=== PATIENT | female | born 1955 | race Caucasian/White ===

== ENCOUNTER → 2016-12-01 | Outpatient (CLI) | payer OTHER | LOC: FIMAGING 11:04 | DX: Z12.31 Encounter for screening mammogram for malignant neoplasm of breast (principal); Z80.3 Family history of malignant neoplasm of breast | CPT/HCPCS: G0202 ==

== ENCOUNTER → 2017-09-30 | Outpatient (CLI) | payer OTHER | LOC: FIMAGING 12:42 | PROVIDERS: ATTEND Family Medicine | DX: R10.32 Left lower quadrant pain (principal); N83.202 Unspecified ovarian cyst, left side; K59.09 Other constipation; N83.291 Other ovarian cyst, right side ==

== ENCOUNTER → 2017-12-24 | Outpatient (CLI) | payer OTHER | LOC: FIMAGING 15:08 | PROVIDERS: ATTEND Family Medicine | DX: Z12.31 Encounter for screening mammogram for malignant neoplasm of breast (principal); Z80.3 Family history of malignant neoplasm of breast ==

== ENCOUNTER 2018-06-10 07:55 | Inpatient (IN) | payer OTHER ==
[~2018-06-10 07:55] MED LIST: CETIRIZINE 10 MG TAB PO SCH
[2018-06-10] MEDS ORDERED: CITRATE DEXTROSE SOLN 500 ML BAG ONE (08:26)
[2018-06-10] MEDS ORDERED: CHLORHEXIDINE GLUC HIBICLENS 118 ML BTL TP ONE (08:26)
[2018-06-10] MEDS ORDERED: THROMBIN (BOVINE) 20,000 UNIT VIAL TP ONE (08:26)
[2018-06-10] MEDS ORDERED: BUPIVACAINE 0.25% 30 ML SDV ONE (08:26)
[2018-06-10] MEDS ORDERED: EPINEPHrine 1 MG/ML INJ ONE (08:27)
[2018-06-10] MEDS ORDERED: ceFAZolin 2 GM/DEXTROSE 100 ML IV ONE (08:27)
[2018-06-10] MEDS ORDERED: BACITRACIN 50,000 UNITS/10 ML SYR IRR ONE (08:27)
[2018-06-10] MEDS ORDERED: morphINE SR 15 MG TAB PO ONE (08:27)
[2018-06-10] MEDS ORDERED: ACETAMINOPHEN 500 MG TAB PO ONE (08:27)
[2018-06-10] MEDS ORDERED: morphINE PF 0.2 MG in SYRINGE INTRATHECAL 1 SYR IT ONE (08:27)
[2018-06-10] MEDS ORDERED: GABAPENTIN 300 MG CAP PO ONE (08:27)
--- NOTE | 2018-06-10 08:48 | PDHPUP ---
History & Physical Update H&P update statement: This history and physical update is based on an assessment of the patient which was completed after admission or registration (within 24 hours), but prior to the surgery/procedure. H&P update: H&P reviewed & patient examined, no change in patient's condition since H&P completed (Consents signed and site marked. All questions answered.)
[2018-06-10] MEDS ORDERED: LIDOCAINE 1% 2 ML INJ ID PRN (08:50)
[2018-06-10] MEDS ORDERED: LR 1,000 ML IV ONE (08:50)
[2018-06-10] MEDS ORDERED: oxyCODONE IR 5 MG TAB PO PRN (09:34)
[2018-06-10] MEDS ORDERED: NALOXONE HCL 0.4 MG/ML INJ IVP PRN (09:34)
[2018-06-10] MEDS ORDERED: ONDANSETRON 4 MG/2 ML VIAL IVP PRN ×2 (09:34→13:11)
[2018-06-10] MEDS ORDERED: DEXAMETHASONE 4 MG/ML VIAL IVP PRN (09:34)
[2018-06-10] MEDS ORDERED: ALBUTEROL 3 ML DEYVIAL IH PRN (09:34)
[2018-06-10] MEDS ORDERED: PROPOFOL/EMULSION 500 MG/50 ML BOTTLE IV ONE ×3 (09:40)
[2018-06-10] MEDS ORDERED: REMIFENTANIL HCL 1 MG VIAL ONE (09:42)
[2018-06-10] MEDS ORDERED: fentaNYL 100 MCG/2 ML INJ ONE ×3 (09:42→14:13)
[2018-06-10] MEDS ORDERED: SUCCINYLCHOLINE CHLORIDE 200 MG/10 ML SYR IVP ONE (10:20)
[2018-06-10] MEDS ORDERED: ROCURONIUM 50 MG/5 ML VIAL ONE (10:21)
[2018-06-10] MEDS ORDERED: DEXAMETHASONE 4 MG/ML VIAL ONE (10:21)
[2018-06-10] MEDS ORDERED: ONDANSETRON 4 MG/2 ML VIAL ONE (10:21)
--- NOTE | 2018-06-10 10:22 | PDANEPAE ---
ANE History of Present Illness L4-5 TLIF ANE Past Medical History - Cardiovascular History Hx Hypertension: Yes Hx Arrhythmias: Yes Hx Chest Pain: Yes Hx Coronary Artery / Peripheral Vascular Disease: No Hx CHF / Valvular Disease: Yes Hx Palpitations: No Cardiovascular History Comment: Angiogram 2009. tachy arrythmia. "Leaky Valve " - Pulmonary History Hx COPD: No Hx Asthma/Reactive Airway Disease: Yes Hx Recent Upper Respiratory Infection: No Hx Oxygen in Use at Home: Yes O2 in Use at Home (L/minute): 2L @ night with CPAP Hx Sleep Apnea: Yes Sleep Apnea Screening Result - Last Documented: Positive Pulmonary History Comment: Asthma. hx bronchitis and pneumonia - Neurologic History Hx Cerebrovascular Accident: No Hx Seizures: No Hx Dementia: Yes Neurologic History Comment: Migraines - Endocrine History Hx Diabetes: Yes Endocrine History Comment: hypothyroid - Renal History Hx Renal Disorders: No - Liver History Hx Hepatic Disorders: Yes Hepatic History Comment: hemangioma in liver - Neurological & Psychiatric Hx Hx Neurological and Psychiatric Disorders: Yes Neurological / Psychiatric History Comment: depression - Cancer History Hx Cancer: Yes - Congenital Disorder History Hx Congenital Disorders: No - GI History Hx Gastrointestinal Disorders: Yes Gastrointestinal History Comment: Hx ulcer, IBS, Diverticulitis - Other Health History Other Health History: arthritis,fibromyalgia - Surgical History Prior Surgeries: B cataract, hernia. foot sx, hand sx ANE Review of Systems Review of Systems: - Exercise capacity METS (RN): 4 METS ANE Patient History - Allergies Allergies/Adverse Reactions: hydrocodone bitartrate [From Vicodin] Allergy (Intermediate, Verified 06/10/18 09:02) Vomiting aspirin Allergy (Verified 06/10/18 09:02) Nose Bleed erythromycin base [Erythromycin Base] Allergy (Verified 06/10/18 09:02) Hives latex [Latex] Allergy (Verified 06/10/18 09:02) Hives naproxen sodium [From Aleve] Allergy (Verified 06/10/18 09:02) Nose Bleed niacin [From Niaspan] Allergy (Verified 06/10/18 09:02) Hives nickel Allergy (Verified 06/10/18 09:02) Penicillins Allergy (Verified 06/10/18 09:02) Hives sertraline HCl [From Zoloft] Allergy (Verified 06/10/18 09:02) Hives suture Allergy (Verified 06/10/18 09:02) Swelling - Home Medications Home Medications: Albuterol [Proventil Inhaler HFA (*)] 1 - 2 puffs IH DAILY PRN 06/17/10 [Last Taken Unknown] Azelastine HCl 1 spray NS BID 06/17/10 [Last Taken 06/10/18 05:30] Cetirizine [ZyrTEC 10 mg (*)] 10 mg PO DAILY06 06/17/10 [Last Taken 06/03/18 05: 30] Diltiazem HCl [Diltiazem ER] 240 mg PO DAILY06 06/17/10 [Last Taken 06/10/18 05: 30] Levothyroxine [Synthroid 88 mcg (*)] 88 mcg PO DAILY06 06/17/10 [Last Taken 05:30] Montelukast Sodium [Singulair 10 mg (*)] 10 mg PO DAILY@06/17/10 [Last Taken 06/09/18 17:00] Nitroglycerin [Nitrostat 0.4 mg (*)] 0.4 mg SL Q5M PRN 06/17/10 [Last Taken 11/29] [place]-3 Fatty Acids [Fish Oil 1000 mg (*)] 1,000 mg PO DAILY 06/17/10 [Last Taken 06/03/18] Rizatriptan Benzoate [Maxalt Extension Work Director] 10 mg PO DAILY PRN 06/17/10 [Last Taken ] Spironolactone [Aldactone 25 MG (*)] 100 mg PO DAILY 06/17/10 [Last Taken ] C/E/Zn/Cu/OM3/DHA/EPA/LUT/ZEAX [Preservision Areds 2 Softgel] 1 each PO BID@05/31/18 [Last Taken 06/07/18] Cholecalciferol Vit D3 [Vitamin D3 2000 units tab (OTC)] 2,000 units PO DAILY@ 05/31/18 [Last Taken 06/09/18 17:00] Fenofibrate [Tricor 145 mg (*)] 145 mg PO DAILY@05/31/18 [Last Taken 17:00] Furosemide [Lasix 20 MG (*)] 20 mg PO DAILY@05/31/18 [Last Taken 06/09/18 17: 00] Scopolamine [Transderm-Scop] 1 each TD DAILY PRN 05/31/18 [Last Taken 03/24/18] - NPO status NPO Since - Liquids (Date): 06/10/18 NPO Since - Liquids (Time): 05:30 NPO Since - Solids (Date): 06/09/18 NPO Since - Solids (Time): 19:30 - Smoking Hx Smoking Status: Never smoked ANE Labs/Vital Signs - Vital Signs Blood Pressure: 157/79 Heart Rate: 87 Respiratory Rate: 16 O2 Sat (%): 95 Height: 165.1 cm Weight: 83.915 kg ANE Physical Exam - Airway Neck exam: FROM Mallampati Score: Class 2 Mouth exam: normal dental/mouth exam - Pulmonary Pulmonary: clear to auscultation - Cardiovascular Cardiovascular: regular rate and rhythym - ASA Status ASA Status: III ANE Anesthesia Plan Anesthesia Plan: general endotracheal anesthesia Total IV Anesthesia: Yes
[2018-06-10] MEDS ORDERED: ePHEDrine SULFATE 25 MG/5 ML SYR ONE (11:04)
[2018-06-10] MEDS ORDERED: HYDROmorphONE/DILAUDID 1 MG/ML INJ ONE (13:08)
[2018-06-10] MEDS ORDERED: SCOPOLAMINE TD PRN (13:10)
[2018-06-10] MEDS ORDERED: ALBUTEROL 60 PUFFS/8 GM MDI IH PRN (13:10)
[2018-06-10] MEDS: fentaNYL 100 MCG/2 ML INJ IVP PRN ×4 (13:10→14:16)
[2018-06-10] MEDS: HYDROmorphONE/DILAUDID 1 MG/ML INJ IVP PRN ×3 (13:11→13:40)
[2018-06-10] MEDS ORDERED: MAGNESIUM HYDROXIDE 30 ML UDCUP PO PRN (13:11)
[2018-06-10] MEDS ORDERED: BISACODYL 10 MG SUPP PR PRN (13:11)
[2018-06-10] MEDS ORDERED: LACTULOSE 20 GM/30 ML UDCUP PO PRN (13:11)
[2018-06-10] MEDS ORDERED: ONDANSETRON DISINTEGRATING 4 MG TAB PO PRN (13:11)
--- NOTE | 2018-06-10 13:22 | POSTOPPROG ---
Post Op Note Date of Operation: 06/10/18 Surgeon: Justin Walker Mathematics Improvement Teacher: JUSTINE Bonner Anesthesia: GET(General Endotracheal) Pre-op Diagnosis: lumbar stenosis Post-op Diagnosis: lumbar stenosis Indication: lumbar stenosis Procedure: L4/5 TLIF and PSF Inf/Abcess present in the surg proc area at time of surgery?: No EBL: 50-100 Drains: Valdez LE Addendum - Addendum .: S: low back pain O: NAD A&OX3 MAEX4 5/ = BUE and BLE A/P 63F s/p L4/5 TLIF and PSF -Opmtize pain management -Advance diet as tolerated -PT/OT -JPX1 -To SDU for observation given central sleep apnea and duramorph give for pain management -Post op xrays pending -DVT prophx: TEDs, SCDs, Lovenox okay POD1 -Please notify NS with any change in neuro/motor exam -Discussed with Dr. Walker
[2018-06-10] MEDS ORDERED: NITROGLYCERIN 0.4 MG BTL SL PRN (13:34)
[2018-06-10] MEDS ORDERED: METHOCARBAMOL 1,000 MG in NS 50 ML IV ONE (13:45)
[2018-06-10] MEDS ORDERED: ceFAZolin 2 GM/DEXTROSE 100 ML IV SCH (14:00)
--- NOTE | 2018-06-10 14:00 | GOP ---
[f rep st] OPERATIVE REPORT DATE OF OPERATION: 06/10/2018 SURGEON: Justin Walker MD SLASHER HAND: Winsome Bonner. ANESTHESIA: General. PREOPERATIVE DIAGNOSIS: 1. L4-L5 grade 1 spondylolisthesis with severe spinal stenosis. 2. Bilateral lower extremity radiculopathy with weakness. 3. Treatment refractory to nonoperative intervention. POSTOPERATIVE DIAGNOSIS: 1. L4-L5 grade 1 spondylolisthesis with severe spinal stenosis. 2. Bilateral lower extremity radiculopathy with weakness. 3. Treatment refractory to nonoperative intervention. PROCEDURE PERFORMED: 1. Posterior arthrodesis with approach to L4 and L5. 2. Posterolateral fusion with bilateral pedicle screw placement at L4 and L5 from the [employer] 5.5 system. 3. Decompressive laminectomy with bilateral medial facetectomies and foraminotomies. 4. Left-sided transforaminal lumbar interbody fusion with a 7 x 23 mm titanium PEEK Elevate cage filled with morselized autograft and allograft. 5. Posterolateral fusion on the right between L4-5 with morselized autograft and allograft. 6. Use of intraoperative 3D Stealth navigation. 7. Use of intraoperative fluoroscopy, less than 1 hour physician time. 8. Use of neuromonitoring. 9. Use of the operating microscope. 10. Injection of preservative-free intrathecal narcotics. FINDINGS: per imaging SPECIMENS: None. ESTIMATED BLOOD LOSS: 100 mL. INDICATIONS: The patient is a 63-year-old woman who has unfortunately has been suffering from a long standing history of low back pain with lower extremity radiculopathy with some weakness. She had evidence of a grade 1 spondylolisthesis L4-5 with severe lateral recess and central stenosis. After discussion of the risks, benefits, and treatment alternatives and after failing nonoperative intervention, we decided to proceed forth with surgery as described above. DESCRIPTION OF PROCEDURE: Patient was brought to the operating theater and underwent general endotracheal anesthesia without complications. She had Venodynes, HORACIO hose, and the appropriate lines placed by Anesthesia. She was flipped prone onto the Valdez table, and all bony processes inspected and padded. The lower lumbar region was prepped and draped in the usual sterile surgical fashion. A time-out was completed per protocol, and the patient received antibiotics within 1 hour of incision. Using lateral fluoroscopy and a spinal needle, we picked our entry point to the L4-5 level. This was marked in the midline, and the incision infiltrated with Marcaine with epinephrine. The incision was taken down with the scalpel blade and using monopolar, taken down the midline through the lumbodorsal fascia. A subperiosteal dissection was carried out to the transverse processes of L4 and L5 bilaterally with care to preserve the bilateral L3-4 facet joint. Deep retractors were placed to maintain our exposure. We confirmed our level using lateral fluoroscopy. We attached the 3D Stealth navigation clamp to the spinous process of L4 and we completed a 3D Stealth navigation spin. Using 3D navigation, we placed the civil engineering professional holes for the bilateral pedicle screws at L4 and L5. All holes were manually palpated with no evidence of any cortical breaches. We then tapped and placed 6.5 x 40 mm screw on the left at L4, 6.5 x 45 mm screw on the right L4 and left side L5, and a 6.5 x 50 mm screw on the right L5, all from the [employer] 5.5 system. Another 3D Stealth navigation spin demonstrated good placement of the hardware. At this point, the microscope was brought into the field to assist with microscopic dissection and to maintain illumination and magnification. Using a combination of the bur tip on the drill bit and Kerrison punches and a Leksell rongeur, we completed a decompressive laminectomy with bilateral mesial facetectomies, L4-L5. We completed foraminotomy on the right side at L4-5 until the nerve felt well decompressed. We then completed an aggressive facetectomy on the left side L4-5 and distracted the interspace. We completed left-sided L4-5 diskectomy and prepared the cartilaginous endplates. We measured the interbody space and placed a 7 x 23 mm titanium PEEK Elevate cage filled with morselized autograft and allograft anteriorly and toward the midline. We packed additional morcellized autograft in the disk space interbody fusion. We let down the distraction and decorticated the bone on the right side between L4 and L5. The wound was irrigated copiously with bacitracin irrigation. We injected preservative-free intrathecal narcotics. We placed 2 lordotic rods and then the heads and screws between L4 and L5 and secured them down with cap screws which were then tightened per the engine head repairer's setting. We placed morselized autograft and allograft on the right side between L4-5 for the posterolateral fusion. A drain was left in the subfascial space. We then closed the wound in multiple layers including PDS sutures for the deep layers and Dermabond for the skin. Patient's wounds were dressed sterilely. She was then flipped supine onto the transport cart where she was awakened, extubated, and taken to the recovery room in stable condition. Note that there were no complications and no noted changes on neuromonitoring throughout the procedure. COMPLICATIONS: None. /[id number]/MODL MTDD
--- NOTE | 2018-06-10 14:08 | PDMN ---
Medical Necessity Medical necessity: Pt meets inpt criteria per MD order and [facility], Lumbar Fusion, inpt only surgery, 3 days, CPT 45686. Est LOS>2MN for surgical intervention for lumbar stenosis, s/p L4-5 TLIF and PSF, requiring inpt post-op care.
[2018-06-10] MEDS: NS 1,000 ML IV SCH (15:20)
[2018-06-10] MEDS: ceFAZolin 2 GM in D5W 100 ML IV SCH (15:34)
[2018-06-10] MEDS: diphenhydrAMINE 25 MG CAP PO PRN (15:34)
[2018-06-10] MEDS: ACETAMINOPHEN 500 MG TAB PO SCH ×2 (16:26→20:31)
[2018-06-10] MEDS: FUROSEMIDE 20 MG TAB PO SCH ×2 (16:26→20:33)
[2018-06-10] MEDS ORDERED: PROMETHAZINE HCL 25 MG/ML INJ IVP PRN (18:03)
--- NOTE | 2018-06-10 18:31 | POSTANESTH ---
Post Anesthetic Evaluation Cardiovascular Status: Normal, Stable Respiratory Status: Normal, Stable Level of Consciousness/Mental Status: Can Participate in Eval, Alert and Oriented Pain Control: Adequate, Prn Tx Ordered Nausea/Vomiting Control: Adequate, Prn Tx Ordered Complications Possibly Related to Anesthesia: None Noted
[2018-06-10] MEDS: PRESERVISION AREDS2 FORMULA EYE VIT 1 EACH PO SCH (19:00)
[2018-06-10] MEDS: MONTELUKAST SODIUM 10 MG TAB PO SCH ×2 (19:01→20:33)
[2018-06-10] MEDS: SENNOSIDES/DOCUSATE SODIUM TAB PO SCH (20:35)
[2018-06-10] MEDS: FAMOTIDINE 20 MG TAB PO SCH (20:36)
[2018-06-10] MEDS: AZELASTINE NASAL MDI NS SCH (20:37)
[2018-06-11] MEDS: ceFAZolin 2 GM in D5W 100 ML IV SCH (00:09)
[2018-06-11] MEDS: NS 1,000 ML IV SCH (05:45)
[2018-06-11] MEDS: CETIRIZINE 10 MG TAB PO SCH (05:54)
[2018-06-11] MEDS: DILTIAZEM HCL PO SCH (05:55)
[2018-06-11] MEDS: LEVOTHYROXINE 88 MCG TAB PO SCH (05:55)
[2018-06-11] MEDS: ACETAMINOPHEN 500 MG TAB PO SCH ×3 (05:56→22:17)
[2018-06-11] MEDS: ENOXAPARIN 40 MG/0.4 ML SYR SC SCH (07:38)
[2018-06-11] MEDS: METHOCARBAMOL 750 MG TAB PO PRN ×3 (07:39→22:17)
[2018-06-11] MEDS: SPIRONOLACTONE 100 MG PO SCH (07:40)
[2018-06-11] MEDS: AZELASTINE NASAL MDI NS SCH ×2 (07:42→20:26)
[2018-06-11] MEDS: PRESERVISION AREDS2 FORMULA EYE VIT 1 EACH PO SCH ×2 (07:42→17:02)
[2018-06-11] MEDS: CHOLECALCIFEROL VIT D3 2,000 UNITS TAB/CAP PO SCH ×2 (07:42→17:05)
[2018-06-11] MEDS: FAMOTIDINE 20 MG TAB PO SCH ×2 (07:43→20:25)
[2018-06-11] MEDS: SENNOSIDES/DOCUSATE SODIUM TAB PO SCH ×2 (07:44→20:26)
--- NOTE | 2018-06-11 08:20 | NEUSURGPN ---
Catheter Insertion Date: 06/10/18 Neurosurgery Physical Exam - Vitals, I&O, Labs I and O 06/10/18 06/11/18 06/12/18 05:59 05:59 05:59 Intake Total 3839 Output Total 3240 Balance 599 Weight 83.915 kg Intake: Oral (ml) 530 IV Intake (ml) 2000 IV Infused (ml) 1309 Ns 1,000 ml @ 75 mls/hr 1109 IV CONT TEAGAN Rx#: [id number] ceFAZolin 2 GM/DEXTROSE 100 100 ml @ 200 mls/hr IV ONCALL ONE Rx#:[id number] ceFAZolin 2 gm In D5w 100 100 ml @ 200 mls/hr IV Q8H TEAGAN Rx#:[id number] Output: Urine (ml) 2465 Catheter 2465 Estimated Blood Loss (ml) 100 Emesis (ml) 450 DAVONTE Drain Output (ml) 225 Back Valdez [place] 225 Other: Intake Quantity Yes Sufficient Vital Signs Temp Pulse Resp BP Pulse Ox 37.1 C 73 13 104/52 L 100 06/11/18 08:00 06/11/18 08:00 06/11/18 08:00 06/11/18 08:00 06/11/18 08:00
--- NOTE | 2018-06-11 08:21 | NEUSURGPN ---
Assessment/Plan: A/P 63F s/p L4/5 TLIF and PSF POD#1 -Opmtize pain management - currently doing ok with tylenol. Pt with multiple medication sensitivities. Itching from duramoph, taking benadryl which is helping somewhat -Advance diet as tolerated -PT/OT -JPX1 -To SDU for observation given central sleep apnea and duramorph give for pain management - doing well and can transfer to the floor -Post op xrays pending -DVT prophx: TEDs - DC TEDs d/t latex allergy and rash, SCDs, Lovenox okay POD1 -Please notify NS with any change in neuro/motor exam -Discussed with Dr. Walker Subjective: Pt resting in bed, states she thinks her foot is stronger. Itching from duramorph but benadryl is helping her Objective: AAOx3 NAD VSS MAEx4 Motor 5/5 BLE with exception of left EHL 5-/5 slight weakness Incision dressed cdi JPx1 Urinary Catheter in Place: Yes Urinary Catheter Indication: Surgical Requirement Catheter Insertion Date: 06/10/18 - Physician Discussed Patient with : Aaron Neurosurgery Physical Exam - Vitals, I&O, Labs I and O 06/10/18 06/11/18 06/12/18 05:59 05:59 05:59 Intake Total 3839 Output Total 3240 Balance 599 Weight 83.915 kg Intake: Oral (ml) 530 IV Intake (ml) 2000 IV Infused (ml) 1309 Ns 1,000 ml @ 75 mls/hr 1109 IV CONT TEAGAN Rx#: [id number] ceFAZolin 2 GM/DEXTROSE 100 100 ml @ 200 mls/hr IV ONCALL ONE Rx#:[id number] ceFAZolin 2 gm In D5w 100 100 ml @ 200 mls/hr IV Q8H TEAGAN Rx#:[id number] Output: Urine (ml) 2465 Catheter 2465 Estimated Blood Loss (ml) 100 Emesis (ml) 450 DAVONTE Drain Output (ml) 225 Back Valdez [place] 225 Other: Intake Quantity Yes Sufficient Vital Signs Temp Pulse Resp BP Pulse Ox 37.1 C 73 13 104/52 L 100 06/11/18 08:00 06/11/18 08:00 06/11/18 08:00 06/11/18 08:00 06/11/18 08:00 ICD10 Worksheet Patient Problems: Problems Problem Status Onset Lumbar degenerative disc disease Acute - ICD10 Problem Qualifiers (1) Lumbar degenerative disc disease
--- NOTE | 2018-06-11 09:44 | ASMTCASEMG ---
Living Arrangements What is your living Answers: Alone arrangement? Who do you live with? Type Of Residence What kind of residence do Answers: House you live in? Discharge Plan Comments Coordination Status Comments Notes: Patient is a 63yo female who was admitted for decompressive laminectomy L4/5 with left sided TLIF. OT/PT have been ordered. D/C plan TBD. CM will follow. Date Signed: 06/11/2018 09:43 AM Electronically Signed By:Mimi Aiken LCSW
[2018-06-11] MEDS ORDERED: DIPHENHYDRAMINE CREAM TP PRN (11:18)
[2018-06-11] MEDS: diphenhydrAMINE 25 MG CAP PO PRN ×2 (12:53→20:25)
[2018-06-11] MEDS: MONTELUKAST SODIUM 10 MG TAB PO SCH (17:03)
[2018-06-11] MEDS: FUROSEMIDE 20 MG TAB PO SCH (17:04)
[2018-06-11] MEDS: oxyCODONE IR 5 MG TAB PO PRN (22:20)
[2018-06-12] MEDS ORDERED: PNEUMOCOCCAL 0.5ML VACCINE VIAL IM ONE ×2 (00:50→06:30)
[2018-06-12] MEDS: CETIRIZINE 10 MG TAB PO SCH (05:57)
[2018-06-12] MEDS: LEVOTHYROXINE 88 MCG TAB PO SCH (05:57)
[2018-06-12] MEDS: ACETAMINOPHEN 500 MG TAB PO SCH ×3 (05:57→21:23)
[2018-06-12] MEDS: oxyCODONE IR 5 MG TAB PO PRN ×4 (05:58→21:23)
[2018-06-12] MEDS: METHOCARBAMOL 750 MG TAB PO PRN ×3 (05:58→21:22)
[2018-06-12] MEDS: DILTIAZEM HCL PO SCH (06:00)
[2018-06-12] MEDS: diphenhydrAMINE 25 MG CAP PO PRN ×4 (08:32→21:22)
[2018-06-12] MEDS: SENNOSIDES/DOCUSATE SODIUM TAB PO SCH ×2 (08:33→21:22)
[2018-06-12] MEDS: POLYETHYLENE GLYCOL 3350 17 GM PKT PO PRN (08:33)
[2018-06-12] MEDS: ENOXAPARIN 40 MG/0.4 ML SYR SC SCH (08:33)
[2018-06-12] MEDS: PRESERVISION AREDS2 FORMULA EYE VIT 1 EACH PO SCH ×2 (08:33→17:37)
[2018-06-12] MEDS: FAMOTIDINE 20 MG TAB PO SCH ×2 (08:33→21:22)
[2018-06-12] MEDS: SPIRONOLACTONE 100 MG PO SCH (08:34)
[2018-06-12] MEDS: AZELASTINE NASAL MDI NS SCH ×2 (08:37→23:00)
--- NOTE | 2018-06-12 08:47 | SOAPPROG ---
SOAP Progress Note Assessment/Plan: Assessment: A/P 63F s/p L4/5 TLIF and PSF POD#2 - doing well and pleased with her progress Plan: -Optimize pain management - currently doing well. Pt with multiple medication sensitivities. -Advance diet as tolerated -PT/OT -dc DAVONTE this morning -possible dc home today if case management and cleared by therapies -Post op xrays show excellent hardware placement -DVT prophx: TEDs - DC TEDs d/t latex allergy and rash, SCDs, Lovenox okay POD1 06/12/18 08:47 Subjective: Subjective: Pt sitting in a chair, states she thinks her foot is stronger Objective: Vital Signs Temp Pulse Resp BP Pulse Ox 37.6 C 86 17 129/65 H 96 06/12/18 08:00 06/12/18 08:00 06/12/18 08:00 06/12/18 08:00 06/12/18 08:00 06/11/18 06/12/18 06/13/18 05:59 05:59 05:59 Intake Total 3839 2200 240 Output Total 3240 710 Balance 599 1490 240 Objective: AAOx3 NAD VSS MAEx4 Motor 5/5 BLE with exception of left EHL 5-/5 slight weakness Incision dressed cdi JPx1 ICD10 Worksheet Patient Problems: Problems Problem Status Onset Lumbar degenerative disc disease Acute
--- NOTE | 2018-06-12 17:15 | ASMTCMCOM ---
CM Note CM Note Notes: PT/OT recommending home care at d/c. Pt declining and states she will have her sister to help her. She is concerned about the financial impact due to her copays. She also expressed concerns re her first PT experience - she was provided with contact information for the Patient Rep in the event she wants to follow up. CM will continue to follow. D/C Plan: Home Independent Date Signed: 06/12/2018 05:13 PM Electronically Signed By:DAVINA Guzman
[2018-06-12] MEDS: FUROSEMIDE 20 MG TAB PO SCH (17:37)
[2018-06-12] MEDS: MONTELUKAST SODIUM 10 MG TAB PO SCH (17:37)
[2018-06-12] MEDS: CHOLECALCIFEROL VIT D3 2,000 UNITS TAB/CAP PO SCH (17:37)
[2018-06-13] MEDS: oxyCODONE IR 5 MG TAB PO PRN ×3 (02:13→11:50)
[2018-06-13] MEDS: LEVOTHYROXINE 88 MCG TAB PO SCH (05:48)
[2018-06-13] MEDS: ACETAMINOPHEN 500 MG TAB PO SCH ×2 (05:48→13:51)
[2018-06-13] MEDS: CETIRIZINE 10 MG TAB PO SCH (05:48)
[2018-06-13] MEDS: DILTIAZEM HCL PO SCH (05:49)
[2018-06-13] MEDS: diphenhydrAMINE 25 MG CAP PO PRN ×2 (06:30→11:50)
[2018-06-13] MEDS: METHOCARBAMOL 750 MG TAB PO PRN ×2 (06:30→13:51)
--- NOTE | 2018-06-13 07:14 | SOAPPROG ---
[place] Progress Note Assessment/Plan: Assessment: A/P 63F s/p L4/5 TLIF and PSF POD#3 - continues to do well and pleased with her progress Plan: -Optimize pain management - currently doing well. Pt with multiple medication sensitivities. -Advance diet as tolerated -PT/OT -possible dc home today if case management and cleared by therapies -DVT prophx: TEDs - DC TEDs d/t latex allergy and rash, SCDs, Lovenox okay POD1 06/13/18 07:13 Subjective: no new complaints this morning; she feels that she is getting a good regimen on her oral pain medications for pain control Objective: Vital Signs Temp Pulse Resp BP Pulse Ox 37.0 C 73 17 122/62 H 97 06/13/18 03:13 06/13/18 03:13 06/13/18 03:13 06/13/18 03:13 06/13/18 03:13 06/12/18 06/13/18 06/14/18 05:59 05:59 05:59 Intake Total 2200 1130 Output Total 710 25 Balance 1490 1105 AAOx3 NAD VSS MAEx4 Motor 5/5 BLE with exception of left EHL 5-/5 slight weakness Incision dressed cdi ICD10 Worksheet Patient Problems: Problems Problem Status Onset Lumbar degenerative disc disease Acute
[2018-06-13] MEDS: PRESERVISION AREDS2 FORMULA EYE VIT 1 EACH PO SCH (09:11)
[2018-06-13] MEDS: AZELASTINE NASAL MDI NS SCH (09:11)
[2018-06-13] MEDS: ENOXAPARIN 40 MG/0.4 ML SYR SC SCH (09:12)
[2018-06-13] MEDS: FAMOTIDINE 20 MG TAB PO SCH (09:13)
[2018-06-13] MEDS: POLYETHYLENE GLYCOL 3350 17 GM PKT PO PRN (09:16)
[2018-06-13] MEDS: SENNOSIDES/DOCUSATE SODIUM TAB PO SCH (09:16)
[2018-06-13] MEDS: SPIRONOLACTONE 100 MG PO SCH (09:17)
[2018-06-13 11:13] VITALS: BP 123/67
--- NOTE | 2018-06-13 12:35 | PDIAF ---
- Diagnosis Diagnosis: s/p L4-5 TLIF Code Status: Full Code - Medication Management Discharge Medications: Medications to Continue on Transfer Albuterol [Proventil Inhaler HFA (*)] 1 - 2 puffs IH DAILY PRN 06/17/10 [Last Taken Unknown] Azelastine HCl 1 spray NS BID 06/17/10 [Last Taken 06/10/18 05:30] Cetirizine [ZyrTEC 10 mg (*)] 10 mg PO DAILY06 06/17/10 [Last Taken 06/03/18 05: 30] Diltiazem HCl [Diltiazem 24Hr ER] 240 mg PO DAILY06 06/17/10 [Last Taken 05:30] Levothyroxine [Synthroid 88 mcg (*)] 88 mcg PO DAILY06 06/17/10 [Last Taken 05:30] Montelukast Sodium [Singulair 10 mg (*)] 10 mg PO DAILY@06/17/10 [Last Taken 06/09/18 17:00] Nitroglycerin [Nitrostat 0.4 mg (*)] 0.4 mg SL Q5M PRN 06/17/10 [Last Taken 11/29] [place]-3 Fatty Acids [Fish Oil 1000 mg (*)] 1,000 mg PO DAILY 06/17/10 [Last Taken 06/03/18] Rizatriptan Benzoate [Maxalt Reference Services Head] 10 mg PO DAILY PRN 06/17/10 [Last Taken ] Spironolactone [Aldactone 25 MG (*)] 100 mg PO DAILY 06/17/10 [Last Taken ] C/E/Zn/Cu/OM3/DHA/EPA/LUT/ZEAX [Preservision Areds 2 Softgel] 1 each PO BID@05/31/18 [Last Taken 06/07/18] Cholecalciferol Vit D3 [Vitamin D3 2000 units tab (OTC)] 2,000 units PO DAILY@ 05/31/18 [Last Taken 06/09/18 17:00] Fenofibrate [Tricor 145 mg (*)] 145 mg PO DAILY@05/31/18 [Last Taken 17:00] Furosemide [Lasix 20 MG (*)] 20 mg PO DAILY@17 05/31/18 [Last Taken 06/09/18 17: 00] Scopolamine [Transderm-Scop] 1 each TD DAILY PRN 05/31/18 [Last Taken 03/24/18] Methocarbamol [Robaxin 750 mg (*)] 750 mg PO QID PRN #60 tab 06/12/18 [Last Taken Unknown] Sennosides/Docusate Sodium [Senokot-S] 1 - 2 tab PO BID tab 06/12/18 [Last Taken Unknown] diphenhydrAMINE [Benadryl 25 MG (*)] 25 - 50 mg PO Q6HRS PRN cap 06/12/18 [ Last Taken Unknown] oxyCODONE IR [Oxycodone Ir (*)] 5 - 10 mg PO Q4HRS PRN #60 tab 06/12/18 [Last Taken Unknown] Discharge Medications: Refer to the Discharge Home Medication list for PRN reason. PICC Care - Routine: N/A - Orders Services needed: Home Care, Physical Therapy Home Care Face to Face: I certify that this patient was under my care and that I had the required [id number] encounter meeting the encounter requirements on the discharge day. My findings support the fact that the patient is homebound as defined in Home Care Face to Face Continued: CMS Chapter 7 Medicare Benefits Manual 30.1.1 , The condition of the patient is such that there exists a normal inability to leave home and consequently, leaving home would require a considerable and taxing effort. Diet Recommendation: no restrictions on diet Diet Texture: Regular Texture Diet Additional Instructions: No NSAIDs for 6 months after any fusion procedure. No bending or twisting at the waist wear brace when out of bed Do not lift greater than 10 pounds - Follow Up Care Current Providers and Referrals: Yamel Fleming MD [Primary Care Provider] - Justin Walker MD [Medical Doctor] - follow up in 2 weeks
--- NOTE | 2018-06-13 14:01 | ASDISCHSUM ---
Discharge Information Plan Status:Home with No Needs Medically Cleared to Leave:06/13/2018 Discharge Date:06/13/2018 CM D/C Disposition:Home, Routine, Self-Care ADT D/C Disposition:[id number] Projected Discharge Date:06/13/2018 03:00 PM Transportation at D/C:Family Discharge Delay Reason: Follow-Up Date:06/13/2018 03:00 PM Discharge Slot: Final Diagnosis:Stenosis/weakness Placement Information Patient Contact Information Contact Name:SHALONDA Relationship:Daughter Address:[address] Work Phone: City:[place] Alternate Phone: [facility]/Zip Code:[place] [address] Email: Financial Information Financial Class:Data Symmetrystephan Resource Data Primary Plan Desc:JESSIE Sudhakar O [facility] Primary Plan Number:[id number] Secondary Plan Desc: Secondary Plan Number: Assessment Information LACE LACE Length of stay for Answers: 3 days current admission Acuity / Level of Answers: Yes Care: Did the patient have an inpatient admission? Comorbidities - select Answers: Congestive heart failure all that apply Dementia Diabetes (uncontrolled or controlled) Other Notes: HTN # of Emergency department Answers: 0 visits in the last 6 months Social determinants Answers: Mental health diagnosis (anxiety, depression, pers onality disorders, etc.) Score: 16 Date Signed: 06/13/2018 01:58 PM Electronically Signed By:Josiane Connors LCSW [facility] Initial CM Assessment Living Arrangements What is your living Answers: Alone arrangement? Who do you live with? Type Of Residence What kind of residence do Answers: House you live in? Discharge Plan Comments Coordination Status Comments Notes: Patient is a 63yo female who was admitted for decompressive laminectomy L4/5 with left sided TLIF. OT/PT have been ordered. D/C plan TBD. CM will follow. Date Signed: 06/11/2018 09:43 AM Electronically Signed By:Mimi Aiken LCSW [facility] CM Progress Note CM Note CM Note Notes: PT/OT recommending home care at d/c. Pt declining and states she will have her sister to help her. She is concerned about the financial impact due to her copays. She also expressed concerns re her first PT experience - she was provided with contact information for the Patient Rep in the event she wants to follow up. CM will continue to follow. D/C Plan: Home Independent Date Signed: 06/12/2018 05:13 PM Electronically Signed By:DAVINA Guzman Case Management Discharge Plan Note Case Management Discharge Discharge Order Complete? Answers: Yes Patient to Obtain Answers: via Family Medications Transportation Arranged Answers: Family/Friends Transport will Pick (Date 06/13/2018 03:00 PM & Time) Family Notified Answers: Yes Notes: Sister to transport Discharge Comments Notes: Patient has been discharged. Was asked again today if she might like HC services. She denied. Her sister is to stay with her. No other needs. Date Signed: 06/13/2018 02:00 PM Electronically Signed By:Josiane Connors LCSW Intervention Information
== END 2018-06-13 15:03 | disposition home health service (06) | DRG 455 ==
LOC: F3N 07:55 → F2N 12:42 → F3N 06-11 11:00
PROVIDERS: ADMIT Neurological Surgery; ATTEND Neurological Surgery
PROC: 4A1004G Monitoring of Central Nervous Electrical Activity, Intraoperative, Open Approach (ICD-10-PCS; principal; 2018-06-10 09:45)
PROC: 0SG00AJ Fusion of Lumbar Vertebral Joint with Interbody Fusion Device, Posterior Approach, Anterior Column, Open Approach (ICD-10-PCS; principal; 2018-06-10 09:45)
PROC: 8E0WXBZ Computer Assisted Procedure of Trunk Region (ICD-10-PCS; principal; 2018-06-10 09:45)
PROC: 00NY0ZZ Release Lumbar Spinal Cord, Open Approach (ICD-10-PCS; principal; 2018-06-10 09:45)
PROC: 0SG0071 Fusion of Lumbar Vertebral Joint with Autologous Tissue Substitute, Posterior Approach, Posterior Column, Open Approach (ICD-10-PCS; principal; 2018-06-10 09:45)
DX: M43.16 Spondylolisthesis, lumbar region (principal); M48.061 Spinal stenosis, lumbar region without neurogenic claudication; M51.16 Intervertebral disc disorders with radiculopathy, lumbar region; Z23 Encounter for immunization; I10 Essential (primary) hypertension; G47.33 Obstructive sleep apnea (adult) (pediatric); J45.909 Unspecified asthma, uncomplicated; E03.9 Hypothyroidism, unspecified; G43.909 Migraine, unspecified, not intractable, without status migrainosus; M79.7 Fibromyalgia; K58.9 Irritable bowel syndrome, unspecified; F32.9 Major depressive disorder, single episode, unspecified
CPT/HCPCS: 97116-GP; 97161-GP; 97165-GO; 97530-GP; 97535-GO; C1713; G0009; J0171; J0330; J0690; J1100; J1170; J1200; J1650; J2274; J2405; J2550; J2704; J2800; J3010; J7060

== ENCOUNTER → 2018-11-28 | Outpatient (CLI) | payer OTHER | LOC: FIMAGING 11:58 | PROVIDERS: ATTEND Neurological Surgery | DX: Z98.1 Arthrodesis status (principal) ==

== ENCOUNTER → 2018-12-30 | Outpatient (CLI) | payer OTHER | LOC: FIMAGING 16:09 | PROVIDERS: ATTEND Family Medicine | DX: Z12.31 Encounter for screening mammogram for malignant neoplasm of breast (principal) ==